=== PATIENT | female | born 1935 | race Caucasian/White ===

== ENCOUNTER 2019-03-22 23:38 | Emergency (ER) | payer MEDICARE ==
[~2019-03-22] VITALS: Ht 147.3 cm; Wt 83.0 kg
[2019-03-22 23:43] VITALS: BP_SYST 159
--- NOTE | 2019-03-22 23:45 | NUR ---
Arrived via BLS.Patient triaged and placed in EMS GURNEY. VSS and patient appears in no acute distress at this time. Accompanied by EMT , awaiting available bed, and MD notified of need for MSE.
--- NOTE | 2019-03-23 00:10 | NUR ---
Patient to ER bed 6 to gown for evaluation. Side rails up. Report given to Naye MIDDLETON.
--- NOTE | 2019-03-23 00:20 | NUR ---
Pt is AAOx4 and able to verbalize needs. Pt brought in by BLS transport c/o of right hip pain. Per pt she slipped and fell at home. Pt states pain to R hip is 8/10. Pt denies any LOC, n/v/d. Pt also states pain to her left calf and pain is exacerbated with movement. Will continue to monitor pt.
--- NOTE | 2019-03-23 00:40 | NUR ---
ER at bedside examining patient.
[2019-03-23] MEDS ORDERED: LACT10SO6 PO (00:43)
[2019-03-23] MEDS ORDERED: OSCD500 PO (00:43)
[2019-03-23] MEDS ORDERED: ACET325T53 PO (00:43)
[2019-03-23] MEDS ORDERED: BENZ-16 PO (00:43)
[2019-03-23] MEDS ORDERED: LEVO25TA7 PO (00:43)
[2019-03-23] MEDS ORDERED: IBUP-1969 PO (00:43)
[2019-03-23] MEDS ORDERED: MYL80 PO (00:43)
[2019-03-23] MEDS ORDERED: ALBU8.5H8 INH (00:43)
[2019-03-23] MEDS ORDERED: DOCU250C14 PO (00:43)
[2019-03-23] MEDS ORDERED: IBUP-2253 PO (00:43)
[2019-03-23] MEDS ORDERED: BISA-79 RC (00:43)
[2019-03-23] MEDS ORDERED: MONT10TA25 PO (00:43)
[2019-03-23] MEDS ORDERED: MULT-1159 PO (00:43)
[2019-03-23] MEDS ORDERED: LORA10TA7 PO (00:43)
[2019-03-23] MEDS ORDERED: MAG360OR83 PO (00:43)
[2019-03-23] MEDS ORDERED: MOM PO (00:43)
[2019-03-23] MEDS ORDERED: CEL20 PO (00:43)
[2019-03-23] MEDS ORDERED: GUAI120L56 PO (00:43)
[2019-03-23] MEDS ORDERED: GUAI-723 PO (00:43)
[2019-03-23] MEDS ORDERED: POLY17PO4 PO (00:43)
[2019-03-23] MEDS ORDERED: MELA3TAB PO (00:43)
[2019-03-23] MEDS ORDERED: CHOL500037 PO (00:43)
[2019-03-23] MEDS ORDERED: NACL 0.9% 1,000 ML IV ONE (00:43)
[2019-03-23] MEDS ORDERED: OCUVITE PO (00:43)
--- NOTE | 2019-03-23 00:44 | NUR ---
Medication reconciliation completed with information provided by [facility]. Any prior medication reconciliation on file was reviewed and corrected.
[2019-03-23] MEDS ORDERED: MORPHINE 4 MG/ML INJ. SYRINGE IVP ONE (00:45)
[2019-03-23] MEDS ORDERED: DIPHENHYDRAMINE INJ 50 MG/ML VIAL IVP ONE (00:45)
--- NOTE | 2019-03-23 00:45 | NUR ---
Pt placed on bedpan at this time. Pt states pain upon movement but tolerated well. Will continue to monitor pt.
--- NOTE | 2019-03-23 00:50 | NUR ---
photocopier technician at bedside for xray at this time.
[2019-03-23 01:14] LABS: BASOPHILS # (AUTO) 0.1 K/uL (0.0-0.2); BASOPHILS % (AUTO) 0.6 % (0.0-2.0); EOSINOPHILS # (AUTO) 0.2 K/uL (0.0-0.4); EOSINOPHILS % (AUTO) 1.5 % (0.0-4.0); HEMOGLOBIN 11.8 g/dL (12.0-16.0); LYMPHOCYTES % (AUTO) 14.2 % (20.5-51.5); MEAN CORPUSCULAR HEMOGLOBIN 32 pg (27-31); MEAN CORPUSCULAR HGB CONC 35 % (32-36); MEAN CORPUSCULAR VOLUME 93 fL (79.0-98.0); MONOCYTES # (AUTO) 0.9 K/uL (0.0-1.0); MONOCYTES % (AUTO) 6.4 % (1.7-9.3); NEUTROPHILS # (AUTO) 10.8 K/uL (1.8-7.7); NEUTROPHILS % (AUTO) 77.3 % (40.0-70.0); PLATELET COUNT (AUTO) 294 K/uL (130-430); RED BLOOD CELL COUNT(AUTO) 3.65 MIL/uL (4.2-6.2); RED CELL DISTRIBUTION WIDTH 13.4 % (9.0-15.0); WHITE BLOOD COUNT (AUTO) 13.9 K/uL (4.8-10.8)
[2019-03-23 01:16] LABS: ANION GAP 8 (5-15); CALCIUM 8.7 mg/dL (8.4-11.0); CHLORIDE 97 mmol/L (98-107); CREATININE 1.04 mg/dL (0.55-1.30); GLUCOSE 138 mg/dL (70-99); POTASSIUM 3.8 mmol/L (3.5-5.1); SODIUM SERUM 132 mmol/L (136-145); UREA NITROGEN, BLOOD 21 mg/dL (8-21)
[2019-03-23 01:20] LABS: PROTHROMBIN TIME 9.9 SECS (9.5-12.5)
[2019-03-23 01:21] LABS: ALANINE AMINOTRANSFERASE 18 U/L (12-78); ALBUMIN 3.6 g/dL (3.4-4.8); ASPARTATE AMINOTRANSFERASE 21 U/L (10-37); TOTAL BILIRUBIN 0.2 mg/dL (0.0-1.0)
--- NOTE | 2019-03-23 01:50 | NUR ---
# 16 FR Key catheter with use of sterile technique. Immediate return of 100 cc yellow urine noted. Bedside drainage bag placed below level of bladder. Urine sample collected and sent to lab. Pt tolerated procedure well.
--- NOTE | 2019-03-23 02:00 | NUR ---
Pt resting comfortably in bed with eyes closed. Pain is tolerable at this time.
[2019-03-23 03:53] LABS: BILIRUBIN,URINE NEGATIVE (NEGATIVE); BLOOD, URINE NEGATIVE (NEGATIVE); CLARITY/URINE CLEAR (CLEAR); COLOR,URINE YELLOW (YELLOW); GLUCOSE,URINE NEGATIVE (NEGATIVE); KETONES,URINE 1+ (NEGATIVE); LEUKOCYTE ESTERASE ,URINE NEGATIVE (NEGATIVE); NITRITE, URINE NEGATIVE (NEGATIVE); PH,URINE 7.5 (5.0-8.0); PROTEIN URINE NEGATIVE (NEGATIVE); UROBILINOGEN,URINE 0.2 (0.2-1.0)
--- NOTE | 2019-03-23 04:23 | NUR ---
Report given to JANINE MIDDLETON at [facility].
[2019-03-23 04:30] VITALS: BP_SYST 157
--- NOTE | 2019-03-23 04:30 | NUR ---
Patient to be transferred to [facility] Is being transferred due to higher level of care. Receiving facility has accepting physician and available space. ER physician has signed transfer form. Patient or responsible libertarian has agreed to transfer and signed form. Patient belongings inventoried and will be sent with patient. Copy of nursing notes, lab reports, EKG, Physicians Orders and X-rays to be sent with patient. Receiving doctor is Dr. Lockwood. Ambulance service is at bedside for transfer.
== END 2019-03-23 04:30 | disposition short-term general hospital (02) ==
LOC: SED 23:38 → SMU 03-23 01:38 → UNDOADMIN 03-23 01:38 → SED 03-23 04:30
DX: S72.141A Displaced intertrochanteric fracture of right femur, initial encounter for closed fracture (principal); J45.909 Unspecified asthma, uncomplicated; Z88.0 Allergy status to penicillin; Z88.2 Allergy status to sulfonamides; Z79.899 Other long term (current) drug therapy; Z90.710 Acquired absence of both cervix and uterus; W01.0XXA Fall on same level from slipping, tripping and stumbling without subsequent striking against object, initial encounter; Y93.89 Activity, other specified; Y92.89 Other specified places as the place of occurrence of the external cause; Y99.8 Other external cause status
CPT/HCPCS: 36415; 72170; 73502; 80053; 81003; 85025; 85610; 85730; 96374; 96375; 99285; J1200; J2270